=== PATIENT | male | born 1975 | race Caucasian/White ===

== ENCOUNTER 2023-07-19 09:15 | Emergency (ER) | payer BC, SELFPAY ==
[2023-07-19 09:23] VITALS: BP 117/92; PULSE 76; RESP 18; TEMP 36.7; O2SAT 98
--- NOTE | 2023-07-19 09:28 | CT_ITS ---
WS: [id number] CT ABDOMEN AND PELVIS NONCONTRAST HISTORY: L flank pain TECHNIQUE: Imaging performed through the abdomen and pelvis. Coronal and sagittal reformats are submi tted. All CT scans at [facility] use at least one of these dose optimization techniques: auto mated exposure control; mA and/or kV adjustment per patient size (includes targeted exams where dose is matched to clinical indication); or iterative reconstruction. DLP: 541.39 mGy.cm COMPARISON: None available. Lower thorax: Lung bases are clear. Visualized heart is normal. No hiatal hernia. Liver: Variable density throughout the liver is probably fatty hepatic steatosis with areas of sparin g. Geographic areas of decreased and increased attenuation. No displacement or splaying of the bronch ovascular structures. Gallbladder: Normal gallbladder. No pericholecystic fluid or cholelithiasis. No gallbladder wall thic [place]. Pancreas: Normal size and attenuation. Normal pancreatic duct. No pancreatitis or mass. Spleen: Normal. Adrenal glands: Normal. No mass. Right kidney: Normal size kidney with no mass or hydronephrosis. Left kidney: Normal size kidney without significant perinephric stranding. 3 mm calcification in the proximal LEFT ureter is not resulting in a significant hydronephrosis at this time. There is very min imal distention of the renal pelvis. Very minimal periureteral stranding proximal to the calcificatio n. No additional ureteral calcifications. Aorta: Normal abdominal aorta, no aneurysm or atherosclerosis. No free fluid, intraperitoneal air or significant lymphadenopathy. GI tract: Normal noncontrast imaging of the stomach, small bowel and colon. No obstruction or wall th ickening. Normal appendix. Abdominal wall: Small umbilical hernia contains fat only. Pelvis: Urinary bladder is moderately distended. There are no calcifications in the bladder. Osseous structures: Negative. IMPRESSION: 1. Proximal LEFT ureteral 3 mm calcification not causing significant obstruction. Minimal distention of the renal pelvis. Mild proximal periureteral edema. 2. No GI tract obstruction. 3. Heterogeneous attenuation throughout the liver. Favor these are areas of hepatic sparing in hepat ic steatosis. Ultrasound would provide the most additional information.
--- NOTE | 2023-07-19 09:29 | ED_ITS ---
HPI - Back Pain/Injury General: Chief Complaint: Back Pain/Injury Stated Complaint: back pain Time Seen by Provider: 07/19/23 09:16 Source: patient Mode of arrival: ambulatory Limitations: no limitations History of Present Illness: 47-year-old male states that 2 hours ago he had sudden onset of left testicle pain he states he felt like he was punched in the testicle having some pain radiate to his left flank as well. Has had nausea rates the pain a 7 out of 10. Denies any fevers denies any abdominal pain no history of kidney stones. Associated symptoms: Deny abdominal pain, chills, fever(s), nausea or vomiting Review of Systems Const: Denies: fever(s), chills, body aches or change in appetite ENMT: Denies: throat pain or dental pain Card: Denies: chest pain Resp: Denies: dyspnea GI: Denies: abdominal pain, nausea, vomiting or diarrhea : Reports: flank pain and testicular pain Musc: Denies: neck pain or back pain Skin/Breast: Denies: rash Neuro: Denies: headache(s) Physical Exam Const: COMMON NORMALS: no acute distress, patient oriented x3 and healthy appearing HENMT: COMMON NORMALS: normocephalic and atraumatic HEAD & SCALP: normocephalic and atraumatic Eye: COMMON NORMALS: conjunctivae normal CONJUNCTIVA: Yes conjunctivae normal Neck/C-Spine: COMMON NORMALS: full ROM and supple Chest: COMMONS NORMALS: normal inspection of the chest Resp: COMMON NORMALS: normal respiratory effort GI: COMMON NORMALS: Normal to inspection, nondistended, normoactive bowel sounds present, Soft to palpation, non-tender and no masses PALPATION: Yes Soft to palpation Back/Pelvis: OTHER: Testicle exam is normal with some slight tenderness Extremity: COMMON NORMALS: normal to inspection and full ROM Neuro: COMMON NORMALS: patient oriented x3, moves all extremities and no focal motor deficits Psych: COMMON NORMALS: mental status grossly normal, Normal thought process present and cooperative THOUGHT PROCESS: Normal thought process present Skin: COMMON NORMALS: no rashes or lesions noted and no wounds GENERAL SKIN EXAM: no rashes or lesions noted Course Vital Signs: Vital signs: Vital Signs Temperature 98.1 F 07/19/23 09:23 Pulse Rate 76 07/19/23 09:23 Respiratory Rate 18 07/19/23 09:55 Blood Pressure 117/92 07/19/23 09:23 Pulse Oximetry 95 07/19/23 09:55 Oxygen Delivery Me thod Room Air 07/19/23 09:23 MDM - Back Pain/Injury Medical Decision Making Patient presents for testicle and flank pain he does have a kidney stone consistent with his history no UTI we will place him on pain meds sent him home with a strainer and follow-up with urology he is return if worsening. Medical Records I reviewed the patient's medical records. Labs I reviewed the patient's lab results. Laboratory Results Urine Color Light yellow (Yellow) 07/19/23 10:17 Urine Appearance Sl hazy (CLEAR) A 07/19/23 10:17 Urine pH 5 (5-7) 07/19/23 10:17 Ur Specific [place] 1.030 (1.005-1.030) 07/19/23 10:17 Urine Protein 1+ (Negative) H 07/19/23 10:17 Urine Glucose (UA) 2+ (Normal) H 07/19/23 10:17 Urine Ketones Negative (Negative) 07/19/23 10:17 Urine Blood 3+ (Negative) H 07/19/23 10:17 Urine Nitrate Negative (Negative) 07/19/23 10:17 Urine Bilirubin Neg (Negative) 07/19/23 10:17 Urine Urobilinogen Norm mg/dL (Negative) 07/19/23 10:17 Ur Leukocyte Esterase Negative (Negative) 07/19/23 10:17 Urine RBC 5-10 /hpf (0-2) H 07/19/23 10:17 Urine WBC None /hpf (0-5) 07/19/23 10:17 Ur Squamous Epith Cells Rare /hpf (0-5) 07/19/23 10:17 Calcium Oxalate Crystal 0-4 /hpf H 07/19/23 10:17 Other Crystals Leucine 1+ /hpf 07/19/23 10:17 Amorphous Sediment Not Reportable 07/19/23 10:17 Urine Bacteria None /hpf (NONE) 07/19/23 10:17 Urine Mucus 2+ /hpf 07/19/23 10:17 Urine Sperm 2+ /hpf 07/19/23 10:17 All radiology interpretation(s) finalized by discharge Discharge Plan Discharge Patient Disposition: Home Clinical Impression: Calculus of left kidney Condition: Stable Prescriptions: New hydrocodone-acetaminophen 5-325 mg tablet 1 tab PO Q6H PRN (Reason: pain) Qty: 14 0RF ondansetron 4 mg tablet,disintegrating 4 mg PO Q6H PRN (Reason: nausea and vomiting) Qty: 14 0RF Flomax 0.4 mg capsule 0.4 mg PO DAILY Qty: 5 0RF Discharge Orders: Discharge ED (Routine); Ordered 07/19/23 Ordered By: Song Loyd Discharge Diet: Advance as tolerated Discharge Activity: Resume usual activity Patient Instructions: Kidney Stones (ED), Opioid Safety Coding Level of Care Code ED Resource Development Manager for Gennaro Girard
[2023-07-19] MEDS: ondansetron 4 MG Tablet PO (09:54)
[2023-07-19] MEDS: HYDROcodone-acetaminophen 7.5-325 mg Tablet 1 TAB PO (09:54)
[2023-07-19 09:55] VITALS: RESP 18; O2SAT 95
[2023-07-19 10:30] LABS: Urine Appearance SL Hazy (CLEAR); Urine Color Light yellow (Yellow); pH Urine 5 (5-7)
[2023-07-19 10:31] LABS: Add Urine Microscopic? YES; Bilirubin Urine Neg (Negative); Blood Urine 3+ (Negative); Glucose Urine UA 2+ (Normal); Ketones Urine Negative (Negative); Leukocyte Esterase Urine Negative (Negative); Nitrate Urine Negative (Negative); Protein Urine 1+ (Negative); Urobilinogen Urine Norm (Negative)
[2023-07-19 10:39] LABS: Mucus Urine 2+ /hpf; Squamous Epithelial Cell Urine RARE /hpf (0-5)
[2023-07-19 10:40] LABS: Calcium Oxalate Crystals Urine 0-4 /hpf
[2023-07-19 10:41] LABS: Add Urine Culture? No; Other Crystals Urine LEUCINE 1+ /hpf; Sperm Urine 2+ /hpf
--- NOTE | 2023-07-19 11:00 | DCPLANNER ---
Faxed referral to [place] at patients request - [phone]
== END 2023-07-19 10:58 | disposition home or self-care (01) ==
PROVIDERS: Emergency Provider Emergency Medicine
DX: N20.0 Calculus of kidney (principal)
CPT/HCPCS: 74176; 81001; 99284; Q0162